=== PATIENT | male | born 1985 | race African-American/Black ===

== ENCOUNTER 2018-11-05 12:15 | Emergency (ER) | payer SELFPAY ==
[2018-11-05 14:32] LABS: C. TRACHOMATIS BY PCR NOT DETECTED; N. GONORRHOEAE BY PCR NOT DETECTED
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
[2018-11-05] MEDS ORDERED: cefTRIAXone 250 MG Vial IM ONE (16:25)
[2018-11-05] MEDS ORDERED: Azithromycin 250 MG Tab PO ONE (16:25)
[2018-11-05] MEDS ORDERED: Ondansetron 4 MG Tab.DIS PO ONE (16:27)
== END 2018-11-05 17:37 | disposition home or self-care (01) ==
LOC: JD.ED 12:15
DX: A64 Unspecified sexually transmitted disease (principal); F17.210 Nicotine dependence, cigarettes, uncomplicated
CPT/HCPCS: 81001; 87491; 87591; 96372; 99283; A9270; J0696

== ENCOUNTER 2018-12-07 20:30 | Emergency (ER) | payer SELFPAY ==
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
== END 2018-12-07 20:55 | disposition home or self-care (01) ==
LOC: JD.ED 20:30
DX: K02.9 Dental caries, unspecified (principal)
CPT/HCPCS: 99282; 99283

== ENCOUNTER 2019-03-25 22:04 | Emergency (ER) | payer SELFPAY ==
[2019-03-25] MEDS ORDERED: Ondansetron 4 MG/2 ML SDV IVPUSH ONE (22:41)
[2019-03-25] MEDS ORDERED: Lactated Ringers 1,000 ML IV ONE (22:41)
[2019-03-25] MEDS ORDERED: Loperamide 2 MG Cap PO STA (22:50)
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
== END 2019-03-26 01:09 | disposition home or self-care (01) ==
LOC: JD.ED 22:04
DX: K52.9 Noninfective gastroenteritis and colitis, unspecified (principal); F17.210 Nicotine dependence, cigarettes, uncomplicated
CPT/HCPCS: 36415; 80053; 83735; 85007; 85027; 96361; 96374; 99284; A9270; J2405; J7120; 99283